=== PATIENT | female | born 1985 | race African-American/Black ===

== ENCOUNTER 2017-07-08 12:50 | Outpatient (CLI) | END 2017-07-08 15:20 | disposition home or self-care (01) ==

== ENCOUNTER 2017-07-10 00:16 | Inpatient (IN) | END 2017-07-13 13:15 | disposition home or self-care (01) | DRG 775 ==

== ENCOUNTER 2018-01-26 13:14 | Emergency (ER) | END 2018-01-26 13:55 | disposition home or self-care (01) ==